=== PATIENT | female | born 1985 | race Two or more races ===

== ENCOUNTER 2022-05-29 09:35 | Emergency (ER) | payer MEDICAID ==
[~2022-05-29] VITALS: Ht 160 cm; Wt 71.3 kg
[2022-05-29 09:58] VITALS: BP 148/105
[2022-05-29] MEDS ORDERED: IBUP800T27 PO (10:46)
== END 2022-05-29 10:55 | disposition home or self-care (01) ==
LOC: ER 09:35
DX: S80.12XA Contusion of left lower leg, initial encounter (principal); S20.01XA Contusion of right breast, initial encounter; Z79.1 Long term (current) use of non-steroidal anti-inflammatories (NSAID); Y04.2XXA Assault by strike against or bumped into by another person, initial encounter; Y93.89 Activity, other specified; Y92.89 Other specified places as the place of occurrence of the external cause; Y99.8 Other external cause status
CPT/HCPCS: 71046